=== PATIENT | male | born 1980 | race Caucasian/White ===

== ENCOUNTER 2017-03-05 14:02 | Emergency (ER) | payer SELFPAY ==
[2017-03-05 14:50] LABS: Basophils % (Auto) 0.4 % (0.0-1.8); Eosinophils % (Auto) 1.7 % (0.0-4.3); Hematocrit 43.5 % (35.5-45.6); Hemoglobin 14.9 gm/dl (11.8-15.2); Mean Corpuscular HGB Conc 34 % (32-34); Mean Corpuscular Hemoglobin 32 pg (28-32); Mean Corpuscular Volume 93 fl (84-94); Platelet Count 208 K/mm3 (140-440); Red Blood Count 4.66 M/mm3 (3.65-5.03); Red Cell Distribution Width 12.6 % (13.2-15.2); White Blood Count 4.6 K/mm3 (4.5-11.0)
--- NOTE | 2017-03-05 15:03 | XRay Report ---
Chest 2 views: History: Status post cough. Findings: Normal cardiomediastinal silhouette. Trachea is midline. No consolidation, pneumothorax or pleural effusion. Impression: No acute cardiopulmonary findings.
[2017-03-05 15:07] LABS: Anion Gap 17 mmol/L; BUN/Creatinine Ratio 31.11; Blood Urea Nitrogen 28 mg/dL (9-20); Calcium 9.4 mg/dL (8.4-10.2); Carbon Dioxide 25 mmol/L (22-30); Chloride 102.7 mmol/L (98-107); Glucose 90 mg/dL (75-100); Sodium 141 mmol/L (137-145)
[2017-03-05 19:50] VITALS: BP 137/90
--- NOTE | 2017-03-05 21:51 | Emergency Department Report ---
HPI - General Chief Complaint: Chest Pain Time Seen by Provider: 03/05/17 21:34 - HPI HPI: 37-year-old male with no past medical history, presents today complaining of chest pain 3 days that comes and goes. Describes the location of his chest pain as midsternal and describes his pain as 5 out of 10 sharp pain. Denies any chest pain at this time. Denies history of similar symptoms. Denies his pain being reproducible. Patient also complaining of cough 3 weeks. Patient states that he moved to [place] 3 weeks ago and this may be pollen associated. Positive for history of allergies. Denies trying any medication for cough or chest pain. Denies fever, chills, nausea, vomiting, hemoptysis, shortness of breath, abdominal pain. ED Past Medical Hx - Past Medical History Previous Medical History?: No - Surgical History Additional Surgical History: R ear reattached,R index finger fx and reset - Social History Smoking Status: Never Smoker Substance Use Type: None - Medications Home Medications: Home Medications Medication Instructions Recorded Confirmed Last Taken Type Cetirizine HCl [ZyrTEC] 10 mg PO QDAY #30 capsule 03/05/17 Unknown Rx Promethazine /Codeine 5 ml PO Q6H PRN #100 ml 03/05/17 Unknown Rx [Phenergan/Codeine 6.25-10 mg/5 ml] ED Review of Systems ROS: Stated complaint: CP/SOB Other details as noted in HPI Constitutional: denies: chills, fever, malaise Eyes: denies: eye pain ENT: denies: ear pain, throat pain, congestion Respiratory: cough. denies: shortness of breath, wheezing Cardiovascular: chest pain (no pain at this time). denies: palpitations Endocrine: no symptoms reported Gastrointestinal: denies: abdominal pain, nausea, vomiting Musculoskeletal: denies: back pain Neurological: denies: headache, weakness Physical Exam - Physical Exam Vital Signs: Vital Signs 03/05/17 03/05/17 14:14 19:49 Temperature 98.1 F 97.3 F L Pulse Rate 60 51 L Respiratory 18 18 Rate Blood Pressure 121/85 137/90 O2 Sat by Pulse 100 100 Oximetry Physical Exam: GENERAL: The patient is well-developed and well-nourished. Patient is in NAD. HEAD: Normocephalic. Atraumatic. EYES: PERRL. EARS: External auditory canals and tympanic membranes clear; hearing grossly intact. NOSE: Normal nasal mucosa with no nasal discharge. THROAT: No erythema, swelling or exudates. NECK: Supple, nontender, without lymphadenopathy. CHEST/LUNGS: Clear to auscultation throughout. No tenderness to palpation of chest wall. HEART/CARDIOVASCULAR: Regular rate and rhythm. No murmurs, rubs or gallops. ABDOMEN: Abdomen is soft, nontender. Bowel sounds normoactive. No guarding or rebound tenderness. EXTREMITIES: Peripheral pulses intact. Capillary refill less than 2 seconds. NEURO: Alert and oriented x 3. Normal gait. ED Course Vital Signs 03/05/17 03/05/17 14:14 19:49 Temperature 98.1 F 97.3 F L Pulse Rate 60 51 L Respiratory 18 18 Rate Blood Pressure 121/85 137/90 O2 Sat by Pulse 100 100 Oximetry ED Medical Decision Making - Lab Data Result diagrams: 03/05/17 14:36 03/05/17 14:36 Vital Signs 03/05/17 03/05/17 14:14 19:49 Temperature 98.1 F 97.3 F L Pulse Rate 60 51 L Respiratory 18 18 Rate Blood Pressure 121/85 137/90 O2 Sat by Pulse 100 100 Oximetry Vital Signs 03/05/17 03/05/17 14:14 19:49 Temperature 98.1 F 97.3 F L Pulse Rate 60 51 L Respiratory 18 18 Rate Blood Pressure 121/85 137/90 O2 Sat by Pulse 100 100 Oximetry - Radiology Data Radiology results: report reviewed Chest x-ray: No acute findings. - Medical Decision Making 37-year-old male with no past medical history, presents today complaining of midsternal chest pain that comes and goes 3 days. Also complaining of cough 3 weeks. His labs, EKG, chest x-ray is within normal limits. Consulted with Dr. Mascorro. Patient scored a 0 on [employer] Criteria and has a heart score of 0. Patient is in no acute distress at this time. He will be discharged home and is encouraged to follow up with a primary care provider. He will be sent home on promethazine/codeine and Zyrtec and is encouraged to return to the emergency room for any worsening symptoms. Critical care attestation.: If time is entered above; I have spent that time in minutes in the direct care of this critically ill patient, excluding procedure time. ED Disposition Clinical Impression: Cough Chest pain Qualifiers: Chest pain type: unspecified Qualified Code(s): R07.9 - Chest pain, unspecified Disposition: DISCHARGED TO HOME OR SELFCARE Is pt being admited?: No Does the pt Need Aspirin: No Condition: Stable Instructions: Chest Pain (ED), Acute Cough (ED) Additional Instructions: Follow up with her primary care provider. Return to the emergency department if symptoms worsen. Prescriptions: Cetirizine HCl [ZyrTEC] 10 mg PO QDAY #30 capsule Promethazine /Codeine [Phenergan/Codeine 6.25-10 mg/5 ml] 5 ml PO Q6H PRN #100 ml PRN Reason: cough Referrals: PRIMARY CARE, [Primary Care Provider] - 3-5 Days [facility] [Outside] - 3-5 Days Forms: Work/School Release Form(ED), Accompanied Note Time of Disposition: 21:55
== END 2017-03-05 22:29 | disposition home or self-care (01) ==
LOC: ED 14:02
DX: R07.2 Precordial pain (principal); R05 Cough
CPT/HCPCS: 36415; 71020; 80048; 84484; 85025; 93005; 93010; 99285